=== PATIENT | female | born 1990 | race Asian ===

== ENCOUNTER → 2023-12-09 15:55 | Outpatient (REF) | payer OTHER, SELFPAY | LOC: RAD 15:55 | PROVIDERS: ATTENDING PHYSICIAN Advanced Practice Midwife; FAMILY PHYSICIAN Nurse Practitioner Adult Health | DX: Z34.81 Encounter for supervision of other normal pregnancy, first trimester (principal) | CPT/HCPCS: 76801 ==

== ENCOUNTER → 2024-02-16 13:19 | Outpatient (REF) | payer OTHER, SELFPAY | LOC: PNTC 13:19 | PROVIDERS: ATTENDING PHYSICIAN Obstetrics & Gynecology | DX: O35.5XX0 Maternal care for (suspected) damage to fetus by drugs, not applicable or unspecified (principal) | CPT/HCPCS: 76811 ==

== ENCOUNTER → 2024-04-11 13:31 | Outpatient (REF) | payer OTHER, SELFPAY | LOC: PNTC 13:31 | PROVIDERS: ATTENDING PHYSICIAN Obstetrics & Gynecology | DX: O24.419 Gestational diabetes mellitus in pregnancy, unspecified control (principal) | CPT/HCPCS: 76816 ==

== ENCOUNTER → 2024-05-09 14:09 | Outpatient (REF) | payer OTHER, SELFPAY ==
--- NOTE | 2024-05-09 16:05 | PN.DIAED02 ---
Referral
DSME Class Series Code: GDM
Referred For: Gestational Diabetes Self-Management Training, Medical Nutrition Therapy, Self-Blood Glucose Monitoring
PHI Release Authorization Form Signed: Yes
Demographic
Patient's primary language-: Cantonese
Care Plan
- Education Needs
Patient Education Needs: Monitoring, Preconception care//gestational diabetes management
Recommended Diabetes Training Program based on assessment: Gestational Diabetes Management
- Plan of Care
Plan of Care:
Met with Ms. Candie Skelton, currently at 30 weeks of gestation, here today for medical nutrition therapy.
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
Explained glucose metabolism in body and what occurs during to cause increase blood sugar. Discussed importance of keeping BS well controlled to avoid complications to the baby during and after (macrosomia, hypoglycemia). Explained
to Mirela that she is at increased risk of developing T2DM in the future. Provided Contour next Gen glucose monitor and reviewed proper testing technique, testing sites and testing pattern. She is aware to test FBS and 2 hr pp each meal. Expected
results for FBS <95 mg/dl and 2 hr pp <120 mg/dl.
Mirela states that her diet consists mainly of carbs and some fruits. She eats chicken or steak with noodles and brown rice for most pof her meals. Explained high carbohydrate diet and macronutrients and the effect each has on blood sugar. Provided
with 1800 maya GDM meal plan. She was educated on how to read a nutritional fact label and look at total CHO in relation to serving size. No fruit or fruit juice until noontime. Provided with handout on snacks as well as 'Choose Your Foods' booklet.
A Log sheet was provided for her to record results, and will send all her glucose readings to Megan at [facility] every Thursday. She was encouraged to keep a regular activity schedule and will reach out should she require insulin.
A script for test strips and Lancets was sent to [facility] in [place] per patient's request
== END ==
LOC: DES 14:09
PROVIDERS: ATTENDING PHYSICIAN Family Medicine
DX: O24.419 Gestational diabetes mellitus in pregnancy, unspecified control (principal)
CPT/HCPCS: 99078

== ENCOUNTER → 2024-05-09 16:00 | Outpatient (REF) | payer OTHER, SELFPAY ==
--- NOTE | 2024-05-09 14:10 | PN.DIAED06 ---
Meal Plan - Gestational
- Breakfast
Gestational Diabetes Meal Plan Name: 1800 calories
Breakfast - Total Carbohydrate (grams): 30
Breakfast - Starch Carbohydrate: 1
Breakfast - Fruit Carbohydrate: 0
Breakfast - Milk Carbohydrate: 1
Breakfast - Nonstarchy Vegetables: Yes
Breakfast - Meat/Protein: 1
Breakfast - Fat: 2
- Morning Snack
Morning Snack - Total Carbohydrate (grams): 30
Morning Snack - Starch Carbohydrate: 1
Morning Snack - Fruit Carbohydrate: 0
Morning Snack - Milk Carbohydrate: 1
Morning Snack - Nonstarchy Vegetables: Yes
Morning Snack - Meat/Protein: 0.5
Morning Snack - Fat: 0
- Lunch
Lunch - Total Carbohydrate (grams): 45
Lunch - Starch Carbohydrate: 2
Lunch - Fruit Carbohydrate: 1
Lunch - Milk Carbohydrate: 0
Lunch - Nonstarchy Vegetables: Yes
Lunch - Meat/Protein: 2
Lunch - Fat: 1
- Afternoon Snack
Afternoon Snack - Total Carbohydrate (grams): 30
Afternoon Snack - Starch Carbohydrate: 1
Afternoon Snack - Fruit Carbohydrate: 1
Afternoon Snack - Milk Carbohydrate: 0
Afternoon Snack - Nonstarchy Vegetables: Yes
Afternoon Snack - Meat/Protein: 1
Afternoon Snack - Fat: 0
- Dinner
Dinner - Total Carbohydrate (grams): 45
Dinner - Starch Carbohydrate: 2
Dinner - Fruit Carbohydrate: 0
Dinner - Milk Carbohydrate: 1
Dinner - Nonstarchy Vegetables: Yes
Dinner - Meat/Protein: 2
Dinner - Fat: 2
- Evening Snack
Evening Snack - Total Carbohydrate (grams): 30
Evening Snack - Starch Carbohydrate: 1
Evening Snack - Fruit Carbohydrate: 0
Evening Snack - Milk Carbohydrate: 1
Evening Snack - Nonstarchy Vegetables: Yes
Evening Snack - Meat/Protein: 1
Evening Snack - Fat: 1
--- NOTE | 2024-05-09 15:57 | PN.DIAED02 ---
Referral
DSME Class Series Code: GDM
Referred For: Gestational Diabetes Self-Management Training, Medical Nutrition Therapy, Self-Blood Glucose Monitoring
PHI Release Authorization Form Signed: Yes
Demographic
Patient's primary language-: Cantonese
Care Plan
- Education Needs
Patient Education Needs: Monitoring, Preconception care//gestational diabetes management
Recommended Diabetes Training Program based on assessment: Gestational Diabetes Management
- Plan of Care
Plan of Care:
Met with Ms. Candie Skelton, currently at 30 weeks of gestation, here today for medical nutrition therapy.
Pt was seen in the office and visit was conducted via a language line-[place] [employer] associate Sonido #[id number] for 1.45 minutes
Explained glucose metabolism in body and what occurs during to cause increase blood sugar. Discussed importance of keeping BS well controlled to avoid complications to the baby during and after (macrosomia, hypoglycemia). Explained
to Mirela that she is at increased risk of developing T2DM in the future. Provided Contour next Gen glucose monitor and reviewed proper testing technique, testing sites and testing pattern. She is aware to test FBS and 2 hr pp each meal. Expected
results for FBS <95 mg/dl and 2 hr pp <120 mg/dl.
Mirela states that her diet consists mainly of carbs and some fruits. She eats chicken or steak with noodles and brown rice for most pof her meals. Explained high carbohydrate diet and macronutrients and the effect each has on blood sugar. Provided
with 1800 maya GDM meal plan. She was educated on how to read a nutritional fact label and look at total CHO in relation to serving size. No fruit or fruit juice until noontime. Provided with handout on snacks as well as 'Choose Your Foods' booklet.
A Log sheet was provided for her to record results, and will send all her glucose readings to Megan at [facility] every Thursday. She was encouraged to keep a regular activity schedule and will reach out should she require insulin.
A script for test strips and Lancets was sent to [facility] in [place] per patient's request
== END ==
LOC: PNTC 16:00
PROVIDERS: ATTENDING PHYSICIAN Obstetrics & Gynecology
DX: O24.419 Gestational diabetes mellitus in pregnancy, unspecified control (principal)
CPT/HCPCS: 76816

== ENCOUNTER → 2024-06-08 13:35 | Outpatient (REF) | payer OTHER, SELFPAY | LOC: PNTC 13:35 | PROVIDERS: ATTENDING PHYSICIAN Obstetrics & Gynecology | DX: O24.419 Gestational diabetes mellitus in pregnancy, unspecified control (principal) | CPT/HCPCS: 76816 ==

== ENCOUNTER 2024-06-28 12:12 | Inpatient (IN) | payer OTHER, SELFPAY ==
[2024-06-28 12:57] VITALS: BP 106/64; BMI 21.1
[2024-06-28 13:51] LABS: % Basophils 0.4 % (0-2); % Eosinophils 0.4 % (0-6); % Immature Granulocytes 0.3 % (0-0.5); % Lymphocytes 23.4 % (20.5-51.1); % Monocytes 6.5 % (1.7-9.3); Absolute Lymphocytes 1.7 10^3/uL (1.2-3.4); Absolute Monocytes 0.5 10^3/uL (0.1-0.6); Absolute Neutrophils 4.9 10^3/uL (1.4-6.5); Hematocrit 37.5 % (37.0-47.0); Hemoglobin 12.4 g/dL (12.0-16.0); Mean Corp Hgb Conc. 33.1 g/dL (33.0-37.0); Mean Corpuscular Hgb 27.1 pg (27.0-31.0); Mean Corpuscular Volume 82.1 fL (81.0-99.0); Mean Platelet Volume 11.4 fL (7.4-10.4); Nucleated Red Blood Cells % 0 %; Platelet Count 223 10^3/uL (130-400); Red Blood Cell Count 4.57 10^6/uL (4.20-5.40); Red Cell Dist. Width 16.2 % (11.5-14.5); White Blood Cell Count 7.1 10^3/uL (4.8-10.8)
[2024-06-28] MEDS: PENICILLIN 110 UNITS IV (14:08)
[2024-06-28] MEDS: PITOCIN 30 UNITS/NSS 500 ML IV ×2 (14:40→18:58)
[2024-06-28 14:51] LABS: Glucose - Point of Care 71 mg/dl (70-99)
[2024-06-28] MEDS: SUBLIMAZE 100 MCG EPIDURAL (15:59)
[2024-06-28] MEDS: FENTANYL/BUPIVACAINE 100 EPIDURAL (16:00)
[2024-06-28] MEDS: LR 1000 IV (16:00)
[2024-06-28 17:30] LABS: Glucose - Point of Care 78 mg/dl (70-99)
[2024-06-28] MEDS: PENICILLIN 55 UNITS IV (17:57)
[2024-06-29 05:14] LABS: Hemoglobin 10.8 g/dL (12.0-16.0)
[2024-06-29] MEDS: MOTRIN 600 MG PO (21:07)
[2024-06-30] MEDS: MOTRIN 600 MG PO (06:30)
[2024-06-30] MEDS: TYLENOL 650 MG PO (10:39)
[2024-06-30] MEDS: SENOKOT-S 1 TABLET PO (10:40)
[2024-07-01 11:21] LABS: Syphilis/T. pallidum Ab Reflex Negative (Negative)
== END 2024-06-30 13:22 | disposition home or self-care (01) | DRG 807 ==
LOC: LDRP 12:12
PROVIDERS: ADMITTING PHYSICIAN Obstetrics & Gynecology; ATTENDING PHYSICIAN Obstetrics & Gynecology
PROC: 4A1HXCZ Monitoring of Products of Conception, Cardiac Rate, External Approach (ICD-10-PCS; 2024-06-28)
PROC: 10E0XZZ Delivery of Products of Conception, External Approach (ICD-10-PCS; 2024-06-28)
PROC: 10907ZC Drainage of Amniotic Fluid, Therapeutic from Products of Conception, Via Natural or Artificial Opening (ICD-10-PCS; 2024-06-28)
PROC: 0KQM0ZZ Repair Perineum Muscle, Open Approach (ICD-10-PCS; 2024-06-28)
DX: O24.420 Gestational diabetes mellitus in childbirth, diet controlled (principal); Z37.0 Single live birth; O99.824 Streptococcus B carrier state complicating childbirth; Z3A.39 39 weeks gestation of pregnancy; O77.0 Labor and delivery complicated by meconium in amniotic fluid; O69.81X0 Labor and delivery complicated by cord around neck, without compression, not applicable or unspecified; O70.1 Second degree perineal laceration during delivery; O76 Abnormality in fetal heart rate and rhythm complicating labor and delivery
CPT/HCPCS: 88307; 36415; 82962; 85014; 85018; 85025; 86780; 86850; 86900; 86901